=== PATIENT | female | born 1940 | race Caucasian/White ===

== ENCOUNTER 2023-05-12 08:00 | Outpatient (RCR) | payer MEDICARE, SELFPAY | END 2023-06-21 15:37 | disposition home or self-care (01) | LOC: HO.WCC 08:00 | PROVIDERS: PCP Internal Medicine; Visit Provider Physician Assistant | DX: S51.811A Laceration without foreign body of right forearm, initial encounter (principal); G62.9 Polyneuropathy, unspecified; I12.9 Hypertensive chronic kidney disease with stage 1 through stage 4 chronic kidney disease, or unspecified chronic kidney disease; N18.30 Chronic kidney disease, stage 3 unspecified; W19.XXXA Unspecified fall, initial encounter; Y93.9 Activity, unspecified; Y92.9 Unspecified place or not applicable; Y99.9 Unspecified external cause status; Z95.0 Presence of cardiac pacemaker; Z79.01 Long term (current) use of anticoagulants | CPT/HCPCS: 97597; 97598; 99212 ==

== ENCOUNTER 2023-06-30 10:14 | Outpatient (RCR) | payer MEDICARE, SELFPAY | END 2023-08-28 13:42 | disposition home or self-care (01) | LOC: HO.WCC 10:14 | PROVIDERS: PCP Internal Medicine; Visit Provider Physician Assistant | DX: S51.812A Laceration without foreign body of left forearm, initial encounter (principal); G62.9 Polyneuropathy, unspecified; I10 Essential (primary) hypertension | CPT/HCPCS: 11042 ==